=== PATIENT | male | born 1945 | race Caucasian/White ===

== ENCOUNTER 2019-09-05 21:06 | Inpatient (IN) | payer OTHER ==
[2019-09-05] VITALS (8 sets, daily range): BP systolic 123–138; BP diastolic 78–91
[~2019-09-05] VITALS: Ht 182.8 cm; Wt 79.0 kg
[2019-09-05] MEDS ORDERED: LIDOCAINE PF 2% 5 ML (XYLOCAINE) VIAL ONE ×2 (21:15→22:16)
[2019-09-05] MEDS ORDERED: LACTATED RINGERS 1,000 ML IV PRN (21:18)
[2019-09-05] MEDS ORDERED: LIDOCAINE/EPI 1%-1:100,000 (XYLOCAINE) 20ML ONE (21:22)
[2019-09-05] MEDS ORDERED: LIDOCAINE 4% INJ (XYLOCAINE) 5ML AMP INH ONE (21:30)
--- NOTE | 2019-09-05 21:34 | ED EENT ---
History of Present Illness General Stated Complaint: SOA Source: patient, EMS Exam Limitations: no limitations History of Present Illness Date Seen by Provider: Sep 05, 2019 Time Seen by Provider: 21:01 Initial Comments The patient presents to the ER by EMS from [facility] with chief complaint of difficulty breathing presently worsening over the past 2 months. 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 He typically follows with the [facility] and lives in [place], [place]. He in the past few weeks. [facility] and [place] who attempted to transfer his care to [facility] but they declined siting he did not have an adequate airway in place. Made consultation with Dr. Carver and he agreed to take the patient. They sent him here to the ER to be stabilized. Patient has 98% sats on room air per EMS and is not requiring any supplemental devices to breathe. He's never had any laryngeal biopsy her surgeries. He last ate at 1400, yogurt. He's had a few sips of water while in the ER today. He is not having any fever, cough or recent travel except the [facility] for consultation. He's having no nausea, sweats, abdominal pain, chest pain. He does smoke cigarettes. He did re ceive Solu-Medrol as well as epinephrine from the ER. Allergies and Home Medications Allergies Coded Allergies: No Allergy Information Available (Unverified , 09/05/19) Patient Home Medication List Home Medication List Reviewed: Yes Review of Systems Review of Systems Constitutional: No chills, No fever Eyes: Denies Blindness, Denies Blurred Vision Ears: Denies Dizziness, Denies Pain Nose: denies clots, denies congestion Mouth: denies clots Throat: see HPI, swelling, muffled; denies difficulty with fluids Respiratory: No cough, No phlegm; short of breath Cardiovascular: No chest pain, No palpitations Gastrointestinal: No abdominal pain, No nausea Musculoskeletal: No back pain, No joint pain All Other Systems Reviewed Negative Unless Noted: Yes Past Bhptwdm-Rscgkt-Abvgwf Hx Patient Social History Alcohol Use: Denies Use Recreational Drug Use: No Smoking Status: Current Everyday Smoker Type Used: Cigarettes Recent Foreign Travel: No Contact w/Someone Who Travel: No Physical Exam Vital Signs Vital Signs - First Documented 4/2/20 21:24 Pulse Ox 97 O2 Delivery Room Air Height, Weight, BMI Height: '" Weight: lbs. oz. kg; BMI Method: General Appearance: WD/WN, no apparent distress Eyes: bilateral eye normal inspection, bilateral eye PERRL, bilateral eye EOMI Ears: bilateral ear auricle normal, bilateral ear canal normal, bilateral ear TM normal Nose: normal inspection; No active bleeding, No discharge Mouth/Throat: normal mouth inspection, pharynx normal Neck: other (palpable firm mass over the larynx with muffled voice) Cardiovascular: normal peripheral pulses, regular rate, rhythm, tachycardia Respiratory: chest non-tender, lungs clear, normal breath sounds, no accessory muscle use, respiratory distress (mild upper airway) Gastrointestinal: non tender, soft Neurologic/Psychiatric: alert, normal mood/affect, oriented x 3 Skin: normal color, warm/dry Progress/Results/Core Measures Results/Orders My Orders Orders - RITESH BROWN Lidocaine 2% Pf 5 Ml (Xylocaine 2% Pf) (09/05/19 21:15) Medications Given in ED Current Medications Medications Dose Ordered Sig/Vanessa Route Start Time Stop Time Status Last Admin Dose Admin Lidocaine HCl 5 ml STK-MED ONCE .ROUTE 09/05/19 21:15 09/05/19 21:21 DC 09/05/19 21:23 5 ML Vital Signs/I&O 09/05/19 21:24 Pulse Ox 97 O2 Delivery Room Air Progress Progress Note : Time: 21:33 Progress Note We reviewed his labs were obtained about 1600. They're unremarkable. He had venous blood gas at that time with unremarkable CO2 and pH of 7.49. On room air he is not having any significant extra worker breathing. Some of his tachycardia could be from the epinephrine and anxiety regarding the procedure. Dr. Carver met the patient in the ER on his arrival examine him and discussed the plan to take him to the OR for direct laryngoscopy and subsequent intubation or tracheostomy. Patient consented and has met with anesthesia. We are going to allow him to go to the OR. Departure Communication (Admissions) Time/Spoke to Admitting Phy: 21:15 Dr. Carver agrees to take the patient straight to the OR and then admit to the ICU. Impression Primary Impression: Laryngeal mass Disposition: HOME, SELF-CARE Condition: Stable Admissions Decision to Admit Reason: Admit from ER (General) Decision to Admit/Date: Sep 05, 2019 Time/Decision to Admit Time: 21:35 Departure-Patient Inst. Referrals: NO,LOCAL PHYSICIAN (PCP/Family) Primary Care Physician RITESH BROWN Sep 05, 2019 21:34
[2019-09-05] MEDS ORDERED: MIDAZOLAM 2 MG/2 ML (VERSED) VIAL ONE (22:15)
[2019-09-05] MEDS ORDERED: ceFAZolin INJECTION 1,000 MG ONE (22:15)
[2019-09-05] MEDS ORDERED: GLYCOPYRROLATE 0.2 MG/ML (ROBINUL) 2 ML VIAL ONE (22:16)
[2019-09-05] MEDS ORDERED: proPOfol 200 MG/20 ML (DIPRIVAN) VIAL IV ONE (22:16)
[2019-09-05] MEDS ORDERED: SEVOFLURANE (ULTANE) 15 ML INHAL SOLN ONE (22:22)
[2019-09-05] MEDS ORDERED: morphine INJ 10 MG/ML 1ML (SYR OR VIAL) ONE (22:27)
[2019-09-05] MEDS ORDERED: ONDANSETRON 4 MG/2 ML (SDV) Z0FRAN ONE ×2 (22:27→22:34)
[2019-09-05] MEDS ORDERED: SUCCINYLCHOLINE INJ 100 MG/5 ML SYR ONE (22:34)
--- NOTE | 2019-09-05 22:53 | Progress Note-Pre Operative ---
Pre-Operative Progress Note H&P Reviewed The H&P was reviewed, patient examined and no changes noted. Date Seen by Provider: Sep 05, 2019 Time Seen by Provider: 21:10 Date H&P Reviewed: Sep 05, 2019 Time H&P Reviewed: 21:10 Pre-Operative Diagnosis: Laryngeal Mass/ Upper Airway Obstruction BETTY CARPENTER MD Sep 05, 2019 22:53
--- NOTE | 2019-09-05 22:54 | Progress Note-Post Operative ---
Post-Operative Progess Note Surgeon (s)/Community Service Patrol Officer (s) Surgeon BETTY CARPENTER MD Community Service Patrol Officer n/a Pre-Operative Diagnosis Laryngeal Mass/ Upper Airway Obstruction Post-Operative Diagnosis same Post-Op Procedure Note Date of Procedure: Sep 05, 2019 Name of Procedure Performed: Emergent Tracheostomy, Direct Laryngoscopy with Multiple Laryngeal Biopsies Description & Findings Description and Findings: n/a Anesthesia Type gen Estimated Blood Loss minimal Packing none. Specimen(s) collected/removed laryngeal biopsies # 6 cuffed shiley placed BETTY CARPENTER MD Sep 05, 2019 22:54
--- NOTE | 2019-09-05 22:56 | Progress Note ---
Standard Progress Note Progress Notes/Assess & Plan Date Seen by a Provider: Sep 05, 2019 Time Seen by a Provider: 22:30 Progress/Assessment & Plan ENT-Wen full h/p dictated marked UAO-needs emergent trach consent signed-go directlhy to OR for airway control BETTY CARPENTER MD Sep 05, 2019 22:56
[2019-09-05] MEDS ORDERED: fentaNYL INJECTION 100 MCG/2 ML AMP IVP PRN (23:00)
--- NOTE | 2019-09-05 23:24 | Anesthesia-General Post-Op ---
General Patient Condition Mental Status/LOC: Same as Preop Cardiovascular: Satisfactory Nausea/Vomiting: Absent Respiratory: Satisfactory Pain: Controlled Complications: Absent Post Op Complications Complications None Follow Up Care/Instructions Patient Instructions None needed. Anesthesia/Patient Condition Patient Condition Patient is doing well, no complaints, stable vital signs, no apparent adverse anesthesia problems. No complications reported per nursing. JAMMIE WOMACK CRNA Sep 05, 2019 23:24
--- NOTE | 2019-09-05 23:26 | HISTORY AND PHYSICAL ---
DATE OF SERVICE: ENT HISTORY AND PHYSICAL/ER NOTE He is in ICU bed 10 in [place]. REASON FOR CONSULTATION: Upper airway obstruction. HISTORY OF PRESENT ILLNESS: The patient is an elderly male, who presented to the emergency room earlier this evening in a significant upper airway distress. His history is significant for a laryngeal mass, which was noted approximately one year ago. He declined treatment at that time. Over the past 2 months, he has had progressive difficulty breathing to the point where he had to go to the emergency room multiple times this week. 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 They requested transfer for control of the airway and diagnosis. PAST MEDICAL HISTORY: Otherwise, unremarkable. ALLERGIES: None known. MEDICATIONS: None. SYSTEM REVIEW: No other history is available. PHYSICAL EXAMINATION: GENERAL: He was mildly stridorous, an extremely hoarse; however, he is in no acute distress and his oxygen saturations were 99%. He had to set up in order to breathe. NECK: He has evidence of potential COPD. He has a recess drawn and anterior larynx with sats low in the neck at the sternal notch. I could feel the cricoid. IMPRESSION: 1. Acute upper airway obstruction. 2. Large laryngeal tumor. RECOMMENDATIONS: The patient will be taken directly to the operating room for airway management if we can get an endotracheal tube and then will do so followed by a tracheostomy; if not, then he will need a local trach. I discussed the significant risk associated with the emergent tracheostomy and airway control. However, he has no other option at this point, he will be in the ICU postoperatively for successful implant. Once we have successfully placed the trach then we will do laryngeal biopsies for a diagnosis. We will have to deal with his potential treatment options later on. He does understand that he will not be able to talk once the trach is in place for a period of 2 to 3 days. Once we were able to let the cuff down and then he will be able to eat, drink and learned to talk with potential palliation treatments would include radiation therapy for potential combination of chemo and radiation therapy and he will need evaluation for evidence of metastasis. If there is no metastasis then potentially he will be a candidate for total laryngectomy as well. Job ID: [id number] DocumentID: [id number] Dictated Date: 09/05/2019 23:09:35 Account Auditor Date: 09/05/2019 23:26:06 Dictated By: BETTY CARPENTER MD
[2019-09-06] VITALS (22 sets, daily range): BP systolic 116–148; BP diastolic 71–101
[2019-09-06] MEDS: LACTATED RINGERS 1,000 ML IV SCH ×3 (01:07→21:34)
[2019-09-06 03:23] LABS: BASOPHILS % (AUTO) 0 % (0-10); EOSINOPHILS % (AUTO) 0 % (0-10); HEMATOCRIT 40 % (40-54); HEMOGLOBIN 13.3 G/DL (13.3-17.7); LYMPHOCYTES # (AUTO) 1.1 X 10^3 (1.0-4.0); LYMPHOCYTES % (AUTO) 6 % (12-44); MEAN CORPUSCULAR HEMOGLOBIN 29 PG (25-34); MEAN CORPUSCULAR HGB CONC 33 G/DL (32-36); MEAN CORPUSCULAR VOLUME 87 FL (80-99); MEAN PLATELET VOLUME 10.1 FL (7.4-10.4); MONOCYTES # (AUTO) 1.3 X 10^3 (0.0-1.0); MONOCYTES % (AUTO) 7 % (0-12); NEUTROPHILS # (AUTO) 15.7 X 10^3 (1.8-7.8); NEUTROPHILS % (AUTO) 87 % (42-75); PLATELET COUNT 296 10^3/uL (130-400); WHITE BLOOD COUNT 18.1 10^3/uL (4.3-11.0)
[2019-09-06 03:45] LABS: BAND NEUTROPHILS 4 %; BUN/CREATININE RATIO 18; CALCIUM 8.9 MG/DL (8.5-10.1); CARBON DIOXIDE 25 MMOL/L (21-32); CHLORIDE 104 MMOL/L (98-107); CREATININE SERUM 0.79 MG/DL (0.60-1.30); GFR ESTIMATED > 60; GLUCOSE 167 MG/DL (70-105); LYMPHOCYTES % (MANUAL) 6 %; MAGNESIUM 1.9 MG/DL (1.6-2.4); MONOCYTES % (MANUAL) 5 %; NEUTROPHILS % (MANUAL) 85 %; PHOSPHORUS 2.8 MG/DL (2.3-4.7); POTASSIUM 4.3 MMOL/L (3.6-5.0); RBC MORPH NORMAL; SODIUM 140 MMOL/L (135-145)
--- NOTE | 2019-09-06 05:50 | NUR ---
DR. CARPENTER HERE AT BEDSIDE. TRACH CUFF DEFLATED AT THIS TIME PER DR. CARPENTER IF PT STARTS BLEEDING TOO MUCH FROM TRACH WE CAN RE-INFLATE CUFF. VERBAL ORDERS FOR CT NECK WITH CONTRAST, CAMERA ASSEMBLER CONSULT FOR HOME HEALTH, SUCTION MACHINE AND MIST MACHINE FOR TRACH. PER DR. CARPENTER PT WILL POSSIBLY DC MONDAY AND WOULD LIKE TO GET THINGS IN ORDER TODAY SO PT CAN DC ON MONDAY.
[2019-09-06] MEDS: KCL 20 MEQ TAB (K-DUR) PO SCH (06:14)
[2019-09-06] MEDS: POTASSIUM CL 10MEQ/50ML IVPB 50 ML IV SCH (06:14)
[2019-09-06] MEDS: MAGNESIUM 1 GM/100 ML IVPB 100 ML IV SCH (06:14)
[2019-09-06] MEDS: ceFAZolin INJECTION 1,000 MG in WATER (STERILE) FOR INJECTION 10 ML IV SCH ×3 (06:24→21:35)
--- NOTE | 2019-09-06 07:27 | Diagnostic Imaging Report ---
INDICATION: Status post tracheostomy placement. COMPARISON: None FINDINGS: Single frontal radiograph view of the chest was obtained and demonstrates indwelling tracheostomy tube with tip at the clavicular heads. Lungs show low inspiratory volumes with patchy hazy opacities in both lung bases suggestive of atelectasis and/or effusion. No pneumothorax is seen. Cardiac silhouette and pulmonary vasculature are within normal limits. Osseous structures show no acute abnormalities. IMPRESSION: 1. Tracheostomy tube with tip at the level of clavicular heads. 2. Low lung volumes with probable small bibasilar effusions and/or atelectasis. Dictated by: Dictated on workstation # [id number]
[2019-09-06] MEDS ORDERED: HOLD METFORMIN - RECEIVED CONTRAST 20 ML VIAL IV SCH (09:15)
[2019-09-06] MEDS ORDERED: IOHEXOL 350 MG/ML 100 ML (OMNIPAQUE 350) VIAL IV ONE (09:15)
[2019-09-06] MEDS ORDERED: NS 100 ML (IVPB) BAG IV ONE (09:15)
--- NOTE | 2019-09-06 10:07 | NUR ---
CM/SS: Visited with pt as per consult for plan for discharge and need for home care, suction, and midst machine. Plan: Pt will discharge with home care and equipment Summary: Pt is sitting in bed alert and able to communicate with this worker by writing. Pt requested that his female friend Tony be told of him being in the hospital. She is listed as a contact on the facesheet. Pt reports using the [facility]. He is given information about my role and helping him get his equipment so that he can discharge on Monday. Phone Call to the [facility]: [phone] ext [phone] [place] - FAX number [phone] - she is told of the request and reports it may be difficult to get today, stating that the SHRUTI Gavin has to sign off as pt had not been fully established through the [facility]. She is requesting that paperwork be faxed to her as soon as possible. She is also told that no one can tack picker the equipment from the [facility] it will need to be arranged in [facility] for tack picker. Call to Dr Carver's office [phone] to request the scripts be faxed over as [facility] is requesting it today so that pt can dismissed over the weekend. Telephone call to Tony Feldman [phone] - friend of pt. left message to have her call this worker. Addendum: 09/06/19 at 1045 by SEAN PATEL Telephone call to [facility] - rerouted to [facility] - [phone] ext [phone] - left message to ERIKA Molina to return call this worker about the outpatient orders.
--- NOTE | 2019-09-06 10:11 | CONSULTATION REPORT ---
DATE OF SERVICE: ENT PROGRESS NOTE ICU bed #10, [place]. REASON FOR VISIT: Follow up tracheostomy/upper airway obstruction. HISTORY OF PRESENT ILLNESS: The patient had an uneventful night. The chest x-ray showed no evidence of pneumothorax. He has had minimal drainage from the trach site. He has no complaints of pain and has not taken any pain medication. His biggest concern at this point is urination. He had urinary retention, which required one straight cath of about 700 mL, hopefully since that is cleared, he will do better. Biopsies were taken at the time of his surgery last night. Those are pending. He has an outside CT of the neck and chest. Exam of neck, trach site intact. The balloon was deflated today. He has since had a small amount of old blood, which he coughed up. Otherwise, it was clear. He can phonate by placing his finger over the trach site, showed him how to suction the trach when he coughs as well. IMPRESSION: 1. Indwelling #6 cuffed Shiley trach. 2. Large laryngeal mass. RECOMMENDATIONS: Given the findings, we will go ahead and repeat a CT of the neck with contrast today to look for any nodes in the neck, had a CT of the chest last night, which will get the official report from, also looking for evidence of metastasis. As part of the workup as an outpatient, he will potentially need a PET scan unless CT of the chest shows a mass if it does, then that eliminates him as a surgical candidate. If the workup was completely negative with the exception of the laryngeal mass and at that point, he may be a candidate for total laryngectomy and bilateral neck dissection, which would need to be done either at the [facility] in [place] or at . We have asked professor of social work to see him for arrangements for home health suction machine and ____ machine. The current trach tube will stay in place for at least 2 weeks prior to changing. The earliest he potentially could go home would be Monday, so we need to make arrangements for the above sometime today, if not Monday then we are looking at toward Monday. I will be back in the same way this afternoon. Job ID: [id number] DocumentID: [id number] Dictated Date: 09/06/2019 06:25:19 Hydraulic Governor Assembler Date: 09/06/2019 06:57:05 Dictated By: BETTY CARPENTER MD
--- NOTE | 2019-09-06 10:35 | Diagnostic Imaging Report ---
PROCEDURE: CT neck soft tissue with contrast. TECHNIQUE: Multiple contiguous axial images were obtained through the neck after the administration of contrast. Auto Exposure Controls were utilized during the CT exam to meet ALARA standards for radiation dose reduction. INDICATION: Tracheostomy placement last night. COMPARISON: None. FINDINGS: Soft tissue mass measuring 3.5 x 3.6 x 5.2 cm located between the hyoid and eroding into the thyroid cartilages in the anterior neck. This results in mass effect upon the airway completely effacing the airway above the level of a tracheostomy. Moderate amount of subcutaneous emphysema in the neck about the tracheostomy which appears in the appropriate position. No definitive defects are seen in the trachea. There is some irregularity along the posterior wall which is most likely due to some secretions layering dependently. No cervical lymphadenopathy is identified. The cervical and vertebral arteries are grossly patent. The thyroid and major salivary glands are unremarkable. Moderate spondylotic changes in the cervical spine. No acute osseous findings. IMPRESSION: 1. Large mass in the anterior neck eroding through the thyroid cartilage extending to the hyoid cartilage. This results in complete effacement of the airway. 2. Tracheostomy in expected position. Subcutaneous emphysema about the recently placed tracheostomy. Findings were discussed Dr. Porter Carver at 10:20 AM on 09/06/2019. Dictated by: Dictated on workstation # [id number]
--- NOTE | 2019-09-06 10:48 | ST Dysphagia Evaluation ---
Speech Evaluation-General Medical Diagnosis Laryngeal mass, respiratory distress Onset Date: Sep 05, 2019 Therapy Diagnosis Therapy Diagnosis: Oropharyngeal Dysphagia Precautions Precautions: Aspiration Precautions/Isolations: Aspiration Referral Referring Physician: Dr. Carver Medical History Reviewed History: Yes Speech PLF/Current-Dysphagia Prior Level of Function Patient has had the laryngeal mass about a year and chose to forego treatment at that time. The patient has been eating soft foods at home. Subjective Patient was cooperative with the Bedside Dysphagia Evaluation Cognitive Status Patient Orientation: Person, Place, Situation Oral Motor Skills Dentition: Natural Patient was NPO pending BDE Tracheostomy Type: Uncuffed Face Facial Symmetry: Symmetrical Oral-Facial Assessment Oral-Facial Dentition: Normal Labial Seal Description: Normal Lingual Protrusion: Normal Lingual ROM: Normal Pharynx Velopharyngeal Move.: Normal Volitional Dry Swallow: Yes Voluntary Cough: Yes Productive Cough: Yes Dysphagia Evaluation Consistencies Presented: Thin Liquid, Mechanical Soft, [place] Thick Liquid, Pureed Oral phase is within normal range of function. Pharyngeal Phase: Decreased A/P Bolus Transit, Multiple Swallow Attempts Pharyngeal phase is grossly within normal range of function with all consistencies except thin liquids. Funct. Velo/Pharyngeal Symptom: Cough After Swallow Dietary Recommendations: Mechanical Soft Liquid Recommendations: [place] Consistancy Swallowing Precautions: Alternate Liquids/Solids, Double Swallow, Decreased Bolus 1/4 Tsp, Decreased Rate of Oral Intake, Liquids from Spoon, No Straw, Small Bites and Sips, Sitting Upright 90 Degrees, Sitting 90 Degrees 30 Post Int [place] Dysphagia Evaluation Summary Patient is a 73 year old male who was admitted to the ICU via the ED due to difficulty breathing. Patient has a year old history of a laryngeal tumor for which he chose not to receive treatment. The patient completed a Bedside Dysphagia Evaluation. Thin presentations were given at 1/2 tsp x2 and small sip via straw with cough/clear after each presentation. The patient was noted to have blood and blood clots on the outside of his trach. Nurse was notified and she cleaned him up. He was given nectar consistency liquids at 1/2 tsp x2 without coughing. Patient was given 1/2 tsp applesauce and banana without difficulty. The patient was recommended for nectar consistency liquids and Dysphagia II diet level. These recs were provided for his nurse, Desiree and also written on his white board. Barriers to Learning Patient's medical status Speech Short Term Goals Short Term Goals Short Term Goals 1) Patient will tolerate the least restrictive diet level without s/s of aspiration at 90%. 2) Patient will utilize compensatory strategies as trained for safe oral intake at 90%. Speech Nursing Home Goals Nursing Home Goals Patient will maintain adequate nutrition/hydration via safe effective swallow function. Speech-Plan Patient/Family Goals Patient/Family Goals: Patient plans on returning to his home upon discharge. Treatment Plan Speech Therapy Treatment Plan: Continue Plan of Care Frequency: 2 times per week Estimated Hrs Per Day: .25 hour per day Rehab Potential: Fair Barriers to Learning: Patient's medical status Pt/Family Agrees to Plan: Yes Safety Risks/Education Teaching Recipient: Patient Teaching Methods: Demonstration, Discussion Response to Teaching: Verbalize Understanding, Return Demonstration Education Topics Provided: Safety of oral intake and diet level Time Speech Therapy Time In: 08:15 Speech Therapy Time Out: 08:30 Total Billed Time: 15 Billed Treatment Time ValdezCINDI BETHANIA ST Sep 06, 2019 10:48
--- NOTE | 2019-09-06 11:13 | NUR ---
SPOKE WITH THE PT (HE WAS ABLE TO COMMUNICATE USING PEN/PAPER) WENT THRU THE EXT MED HISTORY AND CALLED THE [facility] TO COMPLETE THE MED REC PT DENIES TAKING ANY PRESCRIPTION OR OTC MEDS THE EXT MED HISTORY SHOW A ZPAK WAS RECENTLY FILLED BUT THE THERAPY WAS COMPLETED BEFORE HE WAS ADMITTED THE [facility] DID NOT HAVE ANY ACTIVE MEDICATIONS (RX AND OTC) ON HIS FILE BUT DID SAY THEY WERE WORKING ON AN ALBUTEROL HFA AND COMBIVENT(BUT THOSE WERE BRAND NEW FOR THE PT) THE PT HAD PREVIOUSLY FILLED AT A [facility] IN [facility], WHEN I INQUIRED ABOUT WHERE HE WOULD WANT OUTGOING SCRIPTS TO GO HE THOUGHT [facility] HERE IN [place] WOULD WORK OUT BETTER
--- NOTE | 2019-09-06 12:03 | Anesthesia-General Post-Op ---
General Patient Condition Mental Status/LOC: Same as Preop Cardiovascular: Satisfactory Nausea/Vomiting: Absent Respiratory: Satisfactory Pain: Controlled Complications: Absent Post Op Complications Complications None Follow Up Care/Instructions Patient Instructions None needed. Anesthesia/Patient Condition Patient Condition The Patient is doing well in ICU. He is resting with stable vital signs, no apparent adverse anesthesia problems. ERIKA Ramírez states Dr. Carver has been in early to see the patient and patient is stable at this time. HUGO NORTH CRNA Sep 06, 2019 12:03
--- NOTE | 2019-09-06 14:10 | NUR ---
CM/SS: Visited with pt as to plan for discharge as per consult Plan : Pt to be discharged to home with [facility] on Monday Summary: Continued follow up with the [facility] as to getting pt what is needed for his trach and supplies Script from Dr Carver is faxed to [facility]: [phone] attn: Myrna Pt given choice and determined that he wanted [facility]. Information faxed to [facility] office [phone]. Initially thinking pt was to discharge on Monday. [facility] needing some additional information to get equipment and supplies. Desiree, SOCIOLOGY PROFESSOR speaks to [facility] RN and clarifies what is needed. Script is faxed to [facility] with the additional information. [facility] indicates they will not be able to get the equipment delivered until Monday. Pt is informed. [facility] is needing pt's Medicare card and number. Pt is able to give this worker his card and it is faxed to [facility] [phone]. Follow up with [facility] [phone] to ensure they have everything needing for referral. Follow up with [facility] to ensure they have what is needs as well.
[2019-09-06] MEDS: APAP 325 MG/10.15 ML LIQ (TYLENOL) UDC PO PRN (15:14)
[2019-09-06] MEDS ORDERED: ceFAZolin INJECTION 1,000 MG ONE (21:25)
[2019-09-06] MEDS ORDERED: WATER (STERILE) FOR INJECTION 10 ML ONE (21:25)
[2019-09-07] VITALS (12 sets, daily range): BP systolic 108–133; BP diastolic 65–84
[2019-09-07 03:30] LABS: BASOPHILS % (AUTO) 0 % (0-10); EOSINOPHILS % (AUTO) 0 % (0-10); HEMATOCRIT 39 % (40-54); HEMOGLOBIN 13.3 G/DL (13.3-17.7); LYMPHOCYTES # (AUTO) 1.8 X 10^3 (1.0-4.0); LYMPHOCYTES % (AUTO) 12 % (12-44); MEAN CORPUSCULAR HEMOGLOBIN 30 PG (25-34); MEAN CORPUSCULAR HGB CONC 34 G/DL (32-36); MEAN CORPUSCULAR VOLUME 88 FL (80-99); MEAN PLATELET VOLUME 10.3 FL (7.4-10.4); MONOCYTES # (AUTO) 1.2 X 10^3 (0.0-1.0); MONOCYTES % (AUTO) 8 % (0-12); NEUTROPHILS # (AUTO) 11.7 X 10^3 (1.8-7.8); NEUTROPHILS % (AUTO) 80 % (42-75); PLATELET COUNT 261 10^3/uL (130-400); RED CELL DISTRIBUTION WIDTH 13.2 % (10.0-14.5); WHITE BLOOD COUNT 14.8 10^3/uL (4.3-11.0)
[2019-09-07 03:43] LABS: BUN/CREATININE RATIO 20; CALCIUM 8.7 MG/DL (8.5-10.1); CARBON DIOXIDE 24 MMOL/L (21-32); CHLORIDE 103 MMOL/L (98-107); GFR ESTIMATED > 60; GLUCOSE 117 MG/DL (70-105); PHOSPHORUS 2.8 MG/DL (2.3-4.7); POTASSIUM 4.1 MMOL/L (3.6-5.0); SODIUM 139 MMOL/L (135-145)
[2019-09-07] MEDS ORDERED: ceFAZolin INJECTION 1,000 MG ONE (06:08)
[2019-09-07] MEDS ORDERED: WATER (STERILE) FOR INJECTION 10 ML ONE (06:08)
[2019-09-07] MEDS: KCL 20 MEQ TAB (K-DUR) PO SCH (06:09)
[2019-09-07] MEDS: MAGNESIUM 1 GM/100 ML IVPB 100 ML IV SCH (06:09)
[2019-09-07] MEDS: POTASSIUM CL 10MEQ/50ML IVPB 50 ML IV SCH (06:09)
[2019-09-07] MEDS: ceFAZolin INJECTION 1,000 MG in WATER (STERILE) FOR INJECTION 10 ML IV SCH ×3 (06:22→20:46)
--- NOTE | 2019-09-07 06:35 | Progress Note ---
Standard Progress Note Progress Notes/Assess & Plan Date Seen by a Provider: Sep 07, 2019 Time Seen by a Provider: 06:30 Progress/Assessment & Plan ENT-Wen full h/p dictated marked UAO-needs emergent trach consent signed-go directlhy to OR for airway control ENT-Wen-09/05-note dictated ENT-Wen-09/06 Patient doign relatively well breathing without difficulty taking thickened liquids wbc-this am-14.8 cxr post tube placement showed atelectasis-some of which is old form the upperairway obstruction on ancef to cover for infection home bi working with [facility] on equipment placement-report it may be monday ct neck reveiwed-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 and goes up to hyoid-no significant nodes seen plan on PET scan as outpatient-still trying to get report from chest ct from [facility] will transsfer to floor today-increse to soft diet to see how he tolerates it neck-mild oozing form trach site-no infection seen-will leave current tube in place until a good tract forms BETTY CARPENTER MD Sep 07, 2019 06:35
--- NOTE | 2019-09-07 07:27 | Diagnostic Imaging Report ---
INDICATION: Dyspnea. EXAMINATION: Chest 09/07/2019. COMPARISON: Made to 09/06/2019. FINDINGS: Single view chest Tracheostomy tube stable. Heart and pulmonary vasculature normal. No new infiltrates or effusions no pneumothorax. Overall stable chest. IMPRESSION: 1. Stable chest. Dictated by: Dictated on workstation # [id number]
--- NOTE | 2019-09-07 20:40 | NUR ---
IV FLUIDS NOT CHANGED-CURRENTLY HAS ABOUT 400ML OUT OF THE BAG-OMNICELL STATES THAT LR 1000ML BAG WAS REMOVED BY LIZETH BERMUDEZ RN 4\4\20 @6032.
[2019-09-08] VITALS: BP 121/71
[2019-09-08 04:00] VITALS: BP 121/73
[2019-09-08 04:10] LABS: BASOPHILS % (AUTO) 0 % (0-10); EOSINOPHILS # (AUTO) 0.1 10^3/uL (0.0-0.3); EOSINOPHILS % (AUTO) 1 % (0-10); HEMATOCRIT 41 % (40-54); HEMOGLOBIN 13.8 G/DL (13.3-17.7); LYMPHOCYTES # (AUTO) 1.5 X 10^3 (1.0-4.0); LYMPHOCYTES % (AUTO) 11 % (12-44); MEAN CORPUSCULAR HEMOGLOBIN 29 PG (25-34); MEAN CORPUSCULAR HGB CONC 33 G/DL (32-36); MEAN CORPUSCULAR VOLUME 88 FL (80-99); MEAN PLATELET VOLUME 10.3 FL (7.4-10.4); MONOCYTES # (AUTO) 1.4 X 10^3 (0.0-1.0); MONOCYTES % (AUTO) 10 % (0-12); NEUTROPHILS # (AUTO) 11.1 X 10^3 (1.8-7.8); NEUTROPHILS % (AUTO) 78 % (42-75); PLATELET COUNT 259 10^3/uL (130-400); WHITE BLOOD COUNT 14.2 10^3/uL (4.3-11.0)
[2019-09-08 04:46] LABS: BUN/CREATININE RATIO 20; CALCIUM 8.8 MG/DL (8.5-10.1); CARBON DIOXIDE 24 MMOL/L (21-32); CHLORIDE 103 MMOL/L (98-107); CREATININE SERUM 0.85 MG/DL (0.60-1.30); GFR ESTIMATED > 60; GLUCOSE 134 MG/DL (70-105); PHOSPHORUS 2.7 MG/DL (2.3-4.7); POTASSIUM 3.9 MMOL/L (3.6-5.0); SODIUM 138 MMOL/L (135-145)
[2019-09-08] MEDS: MAGNESIUM 1 GM/100 ML IVPB 100 ML IV SCH (05:36)
[2019-09-08] MEDS: POTASSIUM CL 10MEQ/50ML IVPB 50 ML IV SCH (05:36)
[2019-09-08] MEDS: KCL 20 MEQ TAB (K-DUR) PO SCH (05:37)
--- NOTE | 2019-09-08 06:19 | NUR ---
0230-PT COUGHING UP THICK CLEAR SECRETIONS FROM TRACH-PT REQUESTING TO BE SUCTION 0245-ALLIE HARD CANDY SPINNER SUCTIONED PT TRACH-THICK YELLOW & CLEAR SECRETIONS EXPELLED-MODERATE AMOUNT-PT STATES THAT HE IS BREATHING WITH EASE AFTER BEING SUCTIONED-PT TOLERATED WELL.
[2019-09-08] MEDS: LACTATED RINGERS 1,000 ML IV SCH (06:30)
--- NOTE | 2019-09-08 06:30 | NUR ---
0630-DR. CARPENTER ON THE FLOOR TO SEE PT THIS RN CLARIFIED IF PT IS TO HAVE THICKENED LIQUIDS OR NOT-THIS RN WAS ADVISED BY DR. CARPENTER THAT PT MAY HAVE NOT THICKENED LIQUIDS LONG HE IS NOT SHOWING ANY SIGNS OR CHOKING OR ASPIRATION. THIS RN WAS ALSO ADVISED BY DR. CARPENTER TO SALINE LOCK THE PT. THIS RN WAS ALSO ADVISED THAT PT MAYBE TAKEN OF THE VAPOTHERM TO AMBULATE IN THE HALLS. ORDERS WERE PUT IN.
--- NOTE | 2019-09-08 06:30 | Progress Note ---
Standard Progress Note Progress Notes/Assess & Plan Date Seen by a Provider: Sep 08, 2019 Time Seen by a Provider: 06:30 Progress/Assessment & Plan ENT-Wen full h/p dictated marked UAO-needs emergent trach consent signed-go directlhy to OR for airway control ENT-Wen-4/-note dictated ENT-Wen-4 Patient doign relatively well breathing without difficulty taking thickened liquids wbc-this am-14.8 cxr post tube placement showed atelectasis-some of which is old form the upperairway obstruction on ancef to cover for infection [facility]-report it may be monday ct neck reveiwed-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 PET scan as outpatient awaiting final path BETTY CARPENTER MD Sep 08, 2019 06:30
[2019-09-08] MEDS: ceFAZolin INJECTION 1,000 MG in WATER (STERILE) FOR INJECTION 10 ML IV SCH ×3 (06:56→22:04)
--- NOTE | 2019-09-08 07:49 | Diagnostic Imaging Report ---
HISTORY: Dyspnea COMPARISON: 09/07/2019 TECHNIQUE: Single frontal view of the chest FINDINGS: Lung volumes are normal. Tracheostomy tube is stable. There are minimal opacities of the left lung base, may represent mild atelectasis. No significant pleural effusion or pneumothorax is seen. The cardiac silhouette is normal in size. IMPRESSION:. Stable tracheostomy tube. Minimal left basilar atelectasis. Dictated by: Dictated on workstation # [id number]
[2019-09-08 08:00] VITALS: BP 134/83
[2019-09-08 12:00] VITALS: BP 138/81
--- NOTE | 2019-09-08 14:20 | NUR ---
PT NOW STATES HE IS PASSING GAS Addendum: 09/08/19 at 1424 by DIA CHRISTOPHER RN THIS NOTE IS ON THE WRONG PATIENT
[2019-09-08 16:00] VITALS: BP 125/75
[2019-09-08 20:00] VITALS: BP 120/70
[2019-09-08] MEDS: APAP 325 MG/10.15 ML LIQ (TYLENOL) UDC PO PRN (20:21)
[2019-09-09 00:43] VITALS: BP 126/79
[2019-09-09 04:00] VITALS: BP 118/73
[2019-09-09 05:28] LABS: BASOPHILS % (AUTO) 0 % (0-10); EOSINOPHILS # (AUTO) 0.3 10^3/uL (0.0-0.3); EOSINOPHILS % (AUTO) 3 % (0-10); HEMATOCRIT 39 % (40-54); HEMOGLOBIN 13.3 G/DL (13.3-17.7); LYMPHOCYTES # (AUTO) 1.6 X 10^3 (1.0-4.0); LYMPHOCYTES % (AUTO) 12 % (12-44); MEAN CORPUSCULAR HEMOGLOBIN 30 PG (25-34); MEAN CORPUSCULAR HGB CONC 34 G/DL (32-36); MEAN CORPUSCULAR VOLUME 88 FL (80-99); MEAN PLATELET VOLUME 10.7 FL (7.4-10.4); MONOCYTES # (AUTO) 1.1 X 10^3 (0.0-1.0); MONOCYTES % (AUTO) 9 % (0-12); NEUTROPHILS # (AUTO) 10.2 X 10^3 (1.8-7.8); NEUTROPHILS % (AUTO) 76 % (42-75); PLATELET COUNT 265 10^3/uL (130-400); RED CELL DISTRIBUTION WIDTH 13.2 % (10.0-14.5); WHITE BLOOD COUNT 13.3 10^3/uL (4.3-11.0)
[2019-09-09 05:58] LABS: BUN/CREATININE RATIO 21; CALCIUM 8.8 MG/DL (8.5-10.1); CARBON DIOXIDE 24 MMOL/L (21-32); CHLORIDE 103 MMOL/L (98-107); CREATININE SERUM 0.77 MG/DL (0.60-1.30); GFR ESTIMATED > 60; GLUCOSE 121 MG/DL (70-105); PHOSPHORUS 2.8 MG/DL (2.3-4.7); POTASSIUM 3.8 MMOL/L (3.6-5.0); SODIUM 138 MMOL/L (135-145)
[2019-09-09] MEDS: ceFAZolin INJECTION 1,000 MG in WATER (STERILE) FOR INJECTION 10 ML IV SCH (06:03)
[2019-09-09] MEDS: POTASSIUM CL 10MEQ/50ML IVPB 50 ML IV SCH (06:03)
[2019-09-09] MEDS: KCL 20 MEQ TAB (K-DUR) PO SCH (06:04)
[2019-09-09] MEDS: MAGNESIUM 1 GM/100 ML IVPB 100 ML IV SCH (06:04)
--- NOTE | 2019-09-09 06:08 | Progress Note ---
Standard Progress Note Progress Notes/Assess & Plan Date Seen by a Provider: Sep 09, 2019 Time Seen by a Provider: 06:00 Progress/Assessment & Plan ENT-Wen full h/p dictated marked UAO-needs emergent trach consent signed-go directlhy to OR for airway control ENT-Wen-4/-note dictated ENT-Wen-09/06 Patient doign relatively well breathing without difficulty taking thickened liquids wbc-this am-14.8 cxr post tube placement showed atelectasis-some of which is old form the upperairway obstruction on ancef to cover for infection home [facility]-report it may be monday ct neck reveiwed-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 and 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 PET scan as outpatient awaiting final path ENT-Wen/6 Did well on monday wbc-continues to trend back toward normal cxr-now clear will plan on discharge today once equipment is in place patient has friend to come pick him up discharge instructions given discharge prescriptions in chart RTC-next ugeges-[facility] with wen Final Diagnosis laryngeal tumor/upper airway obstruction BETTY CARPENTER MD Sep 09, 2019 06:08
--- NOTE | 2019-09-09 06:11 | Diagnostic Imaging Report ---
INDICATION: Dyspnea. Single AP view of the chest is obtained with comparison made study of 09/08/2019 FINDINGS: Overall heart size and pulmonary vascularity are within normal limits. There is slight basilar atelectasis. Calcified granuloma is noted in the lateral upper lobe of the left lung. Tracheostomy tube is in place. There is no evidence of pneumothorax. IMPRESSION: Mild basilar atelectasis, greater on the left. Dictated by: Dictated on workstation # [id number]
[2019-09-09 08:00] VITALS: BP 139/56
--- NOTE | 2019-09-09 12:33 | NUR ---
CM/SS: Visited with pt as to plan for discharge Plan: Pt will discharge to home with [facility] and equipment and trach supplies to be through the [employer] to be delivered this afternoon. Summary: Pt is ready to go home this morning. He reports that [place] had the wrong address. He is able to confirm his address as [address] [place] [address]. Pt's home number is [phone]. He also gives his friend Tony's phone number of [phone]. Telephone call from Abril, field care manager of [employer] [phone] - she reports they can deliver their equipment today, however they will not deliver the suction until tomorrow. This worker request that the suction be delivered today, and the pt can not wait until tomorrow. Abril will reach out to [facility] to coordinate that the suction will be delivered today as well. [facility] is notified - this worker request that the suction be delivered today to ensure that all of the equipment arrives today. [facility] will make contact the equipment company and let them know if will need to be delivered today. Talk with pt and he does give this worker his friends Tony's name and phone number of [phone] and she will be at the home of the pt today after 9:30am to be there when the equipment. Pt reports that his nephew will pick him up at 11:00am. today. Pt request that [facility] to see him today. They are notified and will call pt today and see him tomorrow. Pt later indicated that his nephew will pick him up at 1:00pm. Pt is wished well, and is given the phone number to [facility] with questions. Addendum: 09/09/19 at 1434 by SEAN PATEL Pt's evelia here to pick him up around 1:30pm. Pt taken to meet nephew at the door. Discharge summary faxed to [facility].
[2019-09-09 13:45] VITALS: BP 139/56
--- NOTE | 2019-09-13 08:16 | Physician Query Clarification ---
PQ-Further Specificity Admission/Discharge Admission Date: Sep 05, 2019 at 23:28 Discharge Date: Sep 09, 2019 at 13:45 The medical record reflects the following clinical scenario: History/Risk Factors: laryngeal mass > 1 year Clinical Findings: laryngeal biopsy - moderately differentiated invasive, keratinizing cell carcinoma, Op rpt findings - tumor destruction of thyroid cartiledge and goes up to hyoid Treatment: biopsy larynx, tracheostomy, abx Question: Can you further specify laryngeal mass per the clinical indicators above? Is there mets to the hyoid? Please document a response in the Progress Notes or Discharge Summary. 1. 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 Other, with explanation of the clinical findings. 4. Clinically undetermined, no explanation for the clinical findings. PHYSICIAN RESPONSE Can you specify per above: 1 Please remember a lack of response to the above will prompt a phone page by CDI/Coding staff. In responding to this query, please exercise your independent professional judgment. The purpose of this communication is to more accurately reflect the complexity of your patients condition. The fact that a question is asked does not imply that any particular answer is desired or expected. Thank you for your timely response to this clarification. Requestors name: Martin THIS PHYSICIAN QUERY FORM IS A PERMANENT PART OF THE MEDICAL RECORD MARTIN TORRES Sep 13, 2019 08:15 BETTY CARPENTER MD October 06, 2019 05:15
--- NOTE | 2019-09-13 08:37 | Physician Query Clarification ---
PQ-Further Specificity Admission/Discharge Admission Date: Sep 05, 2019 at 23:28 Discharge Date: Sep 09, 2019 at 13:45 The medical record reflects the following clinical scenario: History/Risk Factors: Laryngeal mass > 1 year Clinical Findings: difficulty breathing, respiratory distress, swelling throat with muffled voice, CXR - 4/3 ow lung volumes with probable small bibasilar effusions and/or atelectasis. 4/5 Stable tracheostomy tube. Minimal left basilar atelectasis 4/6 Mild basilar atelectasis, greater on the left. Treatment: Ancef to cover for infection Question: Can you further specify if atelectasis is a valid, treated condition per the clinical indicators above? Please document a response in the Progress Notes or Discharge Summary. 1. Yes, atelectasis is a valid, treated condition during this hospital stay 2. No, atelectasis is not a valid, treated condition during this hospital stay 3. Other, with explanation of the clinical findings. 4. Clinically undetermined, no explanation for the clinical findings. PHYSICIAN RESPONSE Can you specify per above: 2 Please remember a lack of response to the above will prompt a phone page by CDI/Coding staff. In responding to this query, please exercise your independent professional judgment. The purpose of this communication is to more accurately reflect the complexity of your patients condition. The fact that a question is asked does not imply that any particular answer is desired or expected. Thank you for your timely response to this clarification. Requestors name: Martin THIS PHYSICIAN QUERY FORM IS A PERMANENT PART OF THE MEDICAL RECORD MARTIN TORRES Sep 13, 2019 08:37 BETTY CARPENTER MD October 06, 2019 05:16
== END 2019-09-09 13:45 | disposition home health service (06) | DRG 13 ==
LOC: ER 21:08 → SDC 21:34 → ICU 23:00 → SDC 23:27 → ICU 23:27 → UNDOADMIN 23:28 → ICU 09-07 07:37 → 4TH 09-07 07:37 → UNDODISIN 09-09 13:45
PROVIDERS: ADMIT Otolaryngology Otolaryngology/Facial Plastic Surgery; ATTEND Otolaryngology Otolaryngology/Facial Plastic Surgery
PROC: 0B110F4 Bypass Trachea to Cutaneous with Tracheostomy Device, Open Approach (ICD-10-PCS; principal; 2019-09-06)
PROC: 0CBS8ZX Excision of Larynx, Via Natural or Artificial Opening Endoscopic, Diagnostic (ICD-10-PCS; 2019-09-06)
DX: C32.3 Malignant neoplasm of laryngeal cartilage (principal); J98.8 Other specified respiratory disorders; J44.9 Chronic obstructive pulmonary disease, unspecified; R33.9 Retention of urine, unspecified; F17.210 Nicotine dependence, cigarettes, uncomplicated
CPT/HCPCS: 36415; 70491; 71045; 80048; 83735; 84100; 85007; 85025; 85027; 87081; 88305; 88342; 94640; 94799

== ENCOUNTER → 2019-09-17 | Outpatient (CLI) | payer OTHER ==
--- NOTE | 2019-09-17 14:19 | Diagnostic Imaging Report ---
INDICATION: Squamous cell carcinoma of the larynx, initial staging. TECHNIQUE: The serum blood glucose level at the time of injection was 120 mg/dL. The patient was administered 16.2 mCi of F-18 FDG intravenously in the right forearm and PET imaging was performed from the top of the skull to the mid thighs. Noncontrast CT was also performed for attenuation correction and anatomic correlation. COMPARISON: No prior PET/CT study is available for comparison. Correlation is made with a prior CT neck study from 09/06/2019. FINDINGS: There is symmetric activity throughout the brain. Intense hypermetabolism within the previously noted soft tissue mass in the anterior neck eroding the thyroid cartilage is again noted. This demonstrates an SUV max of approximately 24. There is a small lymph node in the right neck projected just above the level of the mass. This is just deep and slightly inferior to the right parotid gland and measures 10 mm in size. The SUV values are borderline with an SUV max of approximately 3.6. No other hypermetabolic neck lymph nodes are seen. Imaging through the chest is without mediastinal or hilar hypermetabolism. The pulmonary parenchyma is unremarkable. The abdomen and pelvis demonstrate physiologic activity within the GI and tracts. No suspicious hypermetabolism is identified. Note is made of prostatomegaly. There is also sigmoid diverticulosis. IMPRESSION: 1. A hypermetabolic mass in the anterior neck corresponds to the patient's known laryngeal carcinoma. There is a mildly hypermetabolic right neck lymph node. A metastatic node cannot be entirely excluded. No other suspicious areas of hypermetabolism are identified. 2. Prostatomegaly. 3. Uncomplicated diverticulosis. Dictated by: Dictated on workstation # [id number]
== END ==
LOC: RAD 09:29
PROVIDERS: ATTEND Nurse Practitioner
DX: C32.9 Malignant neoplasm of larynx, unspecified (principal); N40.0 Benign prostatic hyperplasia without lower urinary tract symptoms; K57.30 Diverticulosis of large intestine without perforation or abscess without bleeding

== ENCOUNTER → 2020-01-14 | Outpatient (CLI) | payer OTHER ==
--- NOTE | 2020-01-14 14:00 | Diagnostic Imaging Report ---
INDICATION: Laryngeal carcinoma. This study is performed for subsequent treatment strategy and restaging. TECHNIQUE: Serum blood glucose level at the time of injection is 150 mg/dL. The patient was administered 14.6 mCi of F-18 FDG intravenously in the left forearm and PET imaging was performed from top of the skull to mid thighs. Noncontrast CT was also performed for attenuation correction and anatomic correlation. COMPARISON: Comparison is made with prior PET/CT study from 09/17/2019. FINDINGS: Symmetric activity throughout the brain is noted. The intensely hypermetabolic mass in the anterior midline of the neck consistent with patient's known laryngeal carcinoma is no longer visualized. No residual hypermetabolic activity is seen. Patient does have a tracheostomy tube in place. No hypermetabolic cervical lymph nodes are identified. Mediastinum and maria de jesus are unremarkable. Pulmonary parenchyma is unremarkable. There is physiologic activity in the GI and tracts of the abdomen and pelvis. No suspicious hypermetabolic activity is seen. IMPRESSION: Significant improvement since prior PET/CT study from 09/17/2019. The laryngeal mass is no longer visualized. No residual mass or hypermetabolism is identified. No hypermetabolic foci are seen to suggest metastatic disease. Dictated by: Dictated on workstation # [id number]
== END ==
LOC: RAD 10:09
PROVIDERS: ATTEND Internal Medicine Hematology & Oncology
DX: C32.9 Malignant neoplasm of larynx, unspecified (principal); Z93.0 Tracheostomy status
CPT/HCPCS: 78815; A9552